=== PATIENT | male | born 1960 | race African-American/Black ===

== ENCOUNTER 2019-08-19 23:23 | Inpatient (IN) | payer OTHER ==
--- NOTE | 2019-08-19 23:36 | PDOC ---
Attending Attestation - Resident Resident Name: Roya Arellano - ED Attending Attestation I have performed the following: I have examined & evaluated the patient, The case was reviewed & discussed with the resident, I agree w/resident's findings & plan - HPI HPI: 08/19/19 23:45 had dinner with patient at 9:30PM; he then went to bedroom; found him slurring speech and ataxic; gait was completely off. Pt went to [facility] on Jul 24- Aug 03. Returned on the . He owns a liquor store; drinks only on weekends, a couple glasses of wine. Pt doesn't smoke and he doesn't use drugs He is not obese. He has a hx of HTN and thyroid disease. - Physicial Exam PE: 08/19/19 23:48 Agree with resident exam Afebrile HEENT normal; right eye cataract surg in past. Heart lungs normal Follows commands and moves all extremities. Pt is A+Ox3 Pt has normal reflexes Babinski Pronator drift Finger to nose is shaky bilat. - Medical Decision Making 08/20/19 00:10 Patient Name: ABHI PEACOCK THIS IS A PRELIMINARY REPORT FROM [facility] DATE OF SERVICE: 2019-08-19 23:34:46 IMAGES: 143 EXAM: CT HEAD WITHOUT IV CONTRAST TECHNIQUE: Axial images from the skull base to the vertex. Bone and soft tissue windows were reviewed. One or more of the following dose reduction techniques were used: automated exposure control, adjustment of the mA and/or kV according to patient size, use of iterative reconstructive technique. Contrast: None REASON FOR EXAM: Evaluate for TIA/stroke COMPARISON: None. FINDINGS: Small lacunar infarction of the left basal ganglia. Recommend brain MRI to further characterize it quickly worsened. Otherwise, the remaining brain parenchymal architecture appears normal, with preservation of the almodovar-white differentiation. There is no acute intracranial hemorrhage, mass effect or midline shift. No abnormal intra-axial or extra-axial fluid collection is seen. The periventricular white matter is unremarkable. The ventricles and basilar cisterns are maintained. The bones of the calvarium and imaged skull base demonstrate no acute abnormality. The imaged paranasal sinuses and mastoid air cells : Polypoid mucosal thickening versus retention cyst in the right maxillary antrum, incompletely evaluated. IMPRESSION: Small lacunar infarction of the left basal ganglia. Recommend brain MRI to further characterize it quickly worsened. Otherwise, the remaining brain parenchymal architecture appears normal, with preservation of the almodovar-white differentiation. 08/20/19 00:32 D/W Neuro lubrication supervisor Dr. Huffman, who agrees that as pt's ataxia and finger to nose exam is improving, and slurred speech improving, he has no other focal deficits, so we will not tPA at this time; risks outweigh the benefits. He recommends admission for stroke workup; assa and statins and keep head down for the next 24hrs, slight trendelenburg to allow for blood flow to the brain. Heart Score/ECG Review - ECG Intrepretation Rhythm: Regular Rhythm - Dawson Dawson: Normal - P and [place] Delta Wave(s) Present: No WPW: No - ST and T Early Repolarization: No Non Specific ST-T Wave changes: No Flattened T Waves: No Prolonged Q-T Interval: No - ECG Impressions Normal ECG: Yes Non-specific ST Elevation: No Ischemic Changes: No
[2019-08-19] MEDS: SODIUM CHLORIDE 1,000 ML IV SCH (23:45)
--- NOTE | 2019-08-19 23:52 | PDOC ---
History of Present Illness - General Stated Complaint: STROKE LIKE SYMPTOMS Time Seen by Provider: 08/19/19 23:35 - History of Present Illness Initial Comments: Yin Moran is a 59yo man with a PMH of HTN, thyroid disease who presents with acute onset of AMS, gait abnormality and voice abnormality. He presents with his , who states that he was last well at 21:35. She states that he had gone to bed, and he woke up with slurred speech, difficulty walking, and confusion. She says that he does not sound like himself and is not acting like himself. Mr Moran reports that he had "no idea what was going on" when he woke up overnight. Otherwise, he says that he thinks he is fine. He denies any drug or alcohol use, previous episodes of confusion, fever/chills, infectious symptoms, numbness/tingling, or weakness. NIH Stroke Scale - Last Known Well Date/Time & Onset Date Last Known Well: 08/20/19 Time Last Known Well: 21:35 - Initial Evaluation Level of consciousness: Alert Ask patient the month and their age: Answers both correctly Ask patient to open & close eyes; make fist and let go: Obeys both correctly Best gaze (horizontal eye movement): Normal Visual field testing: No visual field loss Facial paresis (Show teeth/raise eyebrows/close eyes tight): Normal symmetrical movement Motor Function: Left Arm: Normal Motor Function: Right Arm: Normal (extends arm 90 (or 45) degrees for 10 seconds without drift Motor Function: Left Leg: Normal (extends leg 30 degrees for 5 seconds without drift) Motor Function: Right Leg: Normal (extends leg 30 degrees for 5 seconds without drift) Limb Ataxia: Present in one limb Sensory(Use pinprick test arms,legs,trunk,face/side to side): Normal Best language (Describe picture, name items, read sentences): No Aphasia Dysarthria (read several words): Mild to moderate slurring of words Extinction and Inattention: No abnormality - Total Score NIH Stroke Scale Score: 2 Past History - Past Medical History Allergies/Adverse Reactions: Allergies Allergy/AdvReac Type Severity Reaction Status Date / Time No Known Allergies Allergy Verified 08/20/19 00:42 Review of Systems - Review of Systems Comments:: General: No fevers, no chills, no weight or appetite change, no malaise HEENT: No changes in vision, no changes in hearing, no congestion, no sore throat CV: No chest pain, no palpitations, no LE edema Pulm: No SOB, no cough, no wheezing GI: No nausea or vomiting, no change in bowel habits, no melena : No frequency, no urgency, no dysuria Musc: No back pain, no joint swelling, no recent injury Skin: No rash, no lesions, no erythema Endo: No excessive thirst, no heat/cold intolerance Heme: No unusual bruising or bleeding, no swollen glands Neuro: No syncope, no numbness/tingling, no focal weakness Vasc: No claudication Psych: No recent change in mood, no SI or HI *Physical Exam - Physical Exam Comments: General: Comfortable, appears stated age HEENT: Atraumatic, face symmetric, PERRL, EOMI, no nystagmus, MMM, normal neck ROM, no LAD Cards: RRR, no murmur appreciated Pulm: Comfortable on room air, clear to auscultation bilaterally Abd: Soft, nontender, nondistended Ext: Atraumatic. No LE edema. ROM intact. Strength 5/5 and equal bilaterally Vasc: Extremities WWP. Palpable radial and pedal pulses bilaterally Skin: Normal color, no rashes or lesions Neuro: A&Ox3 (name, month, place), CN grossly intact, slurred speech, motor/ sensory grossly intact and symmetric. +ataxia on RUE finger-nose testing. Gait unsteadiness. Difficulty following commands until repeated several times. Psych: Mood appropriate to situation ED Treatment Course - LABORATORY CBC & Chemistry Diagram: 08/20/19 00:00 08/20/19 00:00 - RADIOLOGY Radiology Studies Ordered: Category Date Time Status HEAD CT (STROKE) [CT] Stat CT Scan 08/19/19 23:35 Ordered Medical Decision Making - Medical Decision Making 08/19/19 23:51 Yin Moran is a 59yo man with a PMH of HTN, thyroid disease who presents with acute onset of AMS, gait abnormality and voice abnormality concerning for CVA or TIA. He was last seen well at 21:35 tonight. He denies any drug or alcohol use, previous episodes of confusion, fever/chills, infectious symptoms, numbness /tingling, or weakness. - Acute neurological deficits including slurred speech, ataxia. Stroke code called - CVA workup initiated - Pt taken to CT for non-contrast CT head. No acute abnormalities appreciated on initial review, read pending - Stroke scale 2 based on current symptoms 08/20/19 00:40 - Spoke to Dr Huffman regarding possible tPA. As symptoms do not appear to be focal, may not be due to acute CVA or TIA. Feels risks of tPA administration out weigh benefits in this instance. Recommending ASA, statin - CT head w/ small lacunar infarct of left basal ganglia but no acute intracranial bleed. MRI recommended - Labs pending. Plan to admit for additional workup when results completed Discussed with Dr Blanca Arellano PGY2 Discharge - Discharge Information Problems reviewed: Yes Clinical Impression/Diagnosis: Cerebrovascular accident (CVA) Qualifiers: CVA mechanism: unspecified Qualified Code(s): I63.9 - Cerebral infarction, unspecified - Admission Yes - Follow up/Referral - Patient Discharge Instructions - Post Discharge Activity
[2019-08-20 00:25] LABS: BASO % 1.2 % (0-2.0); HEMATOCRIT 45.5 % (35.4-49); HEMOGLOBIN 14.2 GM/dL (11.7-16.9); LYMPH % 48.8 % (8-40); MCH 24.6 pg (25.7-33.7); MCHC 31.3 g/dl (32.0-35.9); MEAN CELL VOLUME 78.8 fl (80-96); MEAN PLT VOLUME 7.5 fl (7.5-11.1); MONO % 11.8 % (3.8-10.2); NEUT % 29.2 % (42.8-82.8); PLATELET COUNT 178 K/MM3 (134-434); RBC 5.78 M/mm3 (4.00-5.60); RDW 15.2 % (11.9-15.9); WHITE BLOOD COUNT 7.4 K/mm3 (4.0-10.0)
[2019-08-20] MEDS ORDERED: ROSUVASTATIN CA 40 MG TABLET PO ONE (00:30)
[2019-08-20] MEDS ORDERED: ASPIRIN 81 MG CHEWABLE TABLETS PO ONE (00:30)
[2019-08-20] MEDS ORDERED: ATORVASTATIN CA 80 MG TABLET (FP) PO ONE (00:31)
[2019-08-20 00:38] LABS: INR 1.03 (0.83-1.09); PROTHROMBIN TIME (PATIENT) 12.2 SEC (9.7-13.0)
[2019-08-20 00:53] LABS: HDL CHOLESTEROL 47 mg/dL (40-60); TRIGLYCERIDES 192 mg/dL (0-150)
[2019-08-20 00:56] LABS: ALBUMIN 2.6 g/dl (3.4-5.0); BILIRUBIN,TOTAL 0.4 mg/dL (0.2-1); BLOOD UREA NITROGEN 9.7 mg/dL (7-18); CREATININE 0.8 mg/dL (0.55-1.3); TOT PROT 4.8 g/dl (6.4-8.2)
[2019-08-20 01:05] LABS: CALCIUM 6.6 mg/dL (8.5-10.1); POTASSIUM 2.7 mmol/L (3.5-5.1)
--- NOTE | 2019-08-20 01:56 | PN ---
Teaching Attending Note Name of Resident: Barb Tilley ATTENDING PHYSICIAN STATEMENT I saw and evaluated the patient. I reviewed the resident's note and discussed the case with the resident. I agree with the resident's findings and plan as documented. SUBJECTIVE: Patient is a 59 year old man with a PMH of HTN and Thyroid disease who presents with acute onset of AMS, gait abnormality and voice abnormality. He presents with his , who states that he was last well at 21:35. She states that he had gone to bed, and he woke up with slurred speech, difficulty walking, and confusion. She says that he does not sound like himself and is not acting like himself. Mr Luisa reports that he had "no idea what was going on" when he woke up overnight. Otherwise, he says that he thinks he is fine. He denies any drug or alcohol use, previous episodes of confusion, fever/chills, infectious symptoms, numbness/tingling, or weakness. OBJECTIVE: Alert Vital Signs Period Temp Pulse Resp BP Sys/Childers Pulse Ox Last 24 Hr 98.4 F 82-82 18-18 124-145/89-97 97-99 HEENT: No Jaundice, eye redness or discharge, PERRLA, EOMI. Normocephalic, atraumatic. External ears are normal and hearing is grossly intact. No nasal discharge. Neck: Supple, nontender. No palpable adenopathy or thyromegaly. No JVD Chest: Good effort. Clear to auscultation and percussion. Heart: Regular. No S3, rub or murmur Abdomen: Not distended, soft, nontender and no HSM. No rebound or guarding. Normal bowel sounds. Ext: Peripheral pulses intact. No leg edema. Skin: Warm and dry. No petechiae, rash or ecchymosis. Neuro: Alert. Oriented x3. Slurred speech; struggling finding words. CN 2-12 grossly intact. Sensation grossly intact in all four extremities and DTR are symmetric. Poor gait. Psych: Appropriate mood and affect. Good insight. Current Medications Generic Name Dose Route Start Last Admin Trade Name Freq PRN Reason Stop Dose Admin Sodium Chloride 1,000 mls @ 42 mls/hr 08/19/19 23:45 08/19/19 23:45 Normal Saline - IV 42 mls/hr ASDIR BRIAN Administration Potassium Chloride 10 meq in 100 mls @ 100 mls/hr 08/20/19 02:15 Potassium Chloride 10 Meq Premix Ivpb - IVPB 08/20/19 05:14 Q60M BRIAN Abnormal Lab Results 08/20/19 08/20/19 08/20/19 00:00 00:00 00:00 RBC 5.78 H MCV 78.8 L MCH 24.6 L MCHC 31.3 L Neutrophils % 29.2 L Lymphocytes % 48.8 H Monocytes % 11.8 H Eosinophils % 9.0 H Sodium 150 H Potassium 2.7 L* Chloride 117 H Calcium 6.6 L* AST 13 L Alkaline Phosphatase 22 L Total Protein 4.8 L Albumin 2.6 L Triglycerides 192 H Total LDL Cholesterol Ur Specific [place] 08/20/19 08/20/19 00:00 02:30 RBC MCV MCH MCHC Neutrophils % Lymphocytes % Monocytes % Eosinophils % Sodium Potassium Chloride Calcium AST Alkaline Phosphatase Total Protein Albumin Triglycerides Total LDL Cholesterol 136 H Ur Specific [place] 1.005 L ASSESSMENT AND PLAN: 1. CVA - Initial NIHSS score in the ER was 2. Noncontrast CT head showed small lacunar infarct of left basal ganglia but no acute intracranial bleed. ER staff spoke to the neurologist who recommended Aspirin and statin but not tPA. MRI recommended. Will do speech and swallow assessment, get ECHO, TSH, monitor on telemetry, carotid doppler and treat with Lipitor 80 mg po qd. Consult PT. EKG showed sinus bradycardia, LAE and nos significant ST-T wave changes. CMP showing hypernatremia, hypokalemia and hypocalcemia and very low total protein may be erroneous - he was started on IV KCL and IV NS in the ER, but will repeat CMP stat and also get Mg+ level before further intervention. Hold IV NS. Get urine toxicology and CXR. 2. DVT prophylaxis - Lovenox 40 mg SQ q 24 hours. 3. Advance directives - Full code
[2019-08-20] MEDS ORDERED: POTASSIUM CHLORIDE TABS 20 MEQ TABLET.ER (FP) PO ONE ×2 (02:06→02:17)
[2019-08-20] MEDS ORDERED: KCL 10 MEQ IVPB 10 MEQ/100 ML INFUS.BAG IVPB ONE (02:17)
[2019-08-20 02:45] LABS: PH,URINE 5.5 (5.0-8.0); URINE APPEARANCE CLEAR; URINE BILIRUBIN NEGATIVE (NEGATIVE); URINE COLOR YELLOW; URINE GLUCOSE (UA) NEGATIVE (NEGATIVE); URINE KETONE NEGATIVE (NEGATIVE); URINE LEUK ESTERASE NEGATIVE (NEGATIVE); URINE NITRITE NEGATIVE (NEGATIVE); URINE PROTEIN NEGATIVE (NEGATIVE); URINE UROBILINOGEN 0.2 mg/dL (0.2-1.0)
[2019-08-20] MEDS: KCL 10 MEQ IVPB 10 MEQ/100 ML INFUS.BAG IVPB SCH ×4 (03:00→06:50)
[2019-08-20 04:24] VITALS: BMI 26.0
--- NOTE | 2019-08-20 04:52 | HP ---
CHIEF COMPLAINT: slurred speech, difficulty speaking, ataxia and altered mental status PCP: HISTORY OF PRESENT ILLNESS: 59 y/o M, pmh of htn and thyroid disease(not known), presented w/ slurred speech , difficulty speaking, ataxia and altered mental status of a few hours duration. He was brought in by his , who states that he was doing well earlier on in the evening. As per he was in bed when he woke up with his symptoms. She reports he was altered and confused upon waking up. As per patient , he does not remember the incidence and can only recall waking up in the ED. Pt denies any previous hx of similar event or symptoms. Pt has never had a stress test of the heart or cva work up. Pt has not seen a doctor or went to the hospital for several years. Pt denies drug or alcohol use, previous episodes of confusion, fever/chills, infectious symptoms, numbness/tingling, or weakness, chest pain, sob, weakness. ER course was notable for: (1) CT head- pending (2) Discussed with neuro- recom no tpa (3) ASA and statin started Recent Travel: denies PAST MEDICAL HISTORY: htn, thyroid disease PAST SURGICAL HISTORY: laproscopic surgery for liver- patient does not recall the name of the procedure Social History: Smoking: denies Alcohol: denies Drugs: denies Allergies No Known Allergies Allergy (Verified 08/20/19 00:42) HOME MEDICATIONS: Current Medications Aspirin (Asa -) 81 mg PO DAILY [facility] Atorvastatin Calcium (Lipitor -) 80 mg PO HS [facility] Sodium Chloride (Normal Saline -) 1,000 mls @ 42 mls/hr IV ASDIR [facility] Last Admin: 08/19/19 23:45 Dose: 42 mls/hr Potassium Chloride (Potassium Chloride 10 Meq Premix Ivpb -) 10 meq in 100 mls @ 100 mls/hr IVPB Q60M [facility] Stop: 08/20/19 05:14 Last Admin: 08/20/19 03:52 Dose: 100 mls/hr REVIEW OF SYSTEMS CONSTITUTIONAL: Absent: fever, chills, diaphoresis, generalized weakness, HEENT: Absent: nasal congestion, throat pain, throat swelling, difficulty swallowing, mouth swelling, visual changes CARDIOVASCULAR: Absent: chest pain, syncope, palpitations, irregular heart rate, lightheadedness , RESPIRATORY: Absent: cough, shortness of breath, dyspnea with exertion, orthopnea, wheezing, GASTROINTESTINAL: Absent: abdominal pain, abdominal distension, nausea, vomiting, diarrhea, MUSCULOSKELETAL: Absent: myalgia, arthralgia, joint swelling, HEMATOLOGIC/IMMUNOLOGIC: Absent: easy bleeding, ENDOCRINE: Absent: unexplained weight gain, unexplained weight loss, NEUROLOGIC: Absent: headache, focal weakness or paresthesias, dizziness, unsteady gait, seizure, mental status changes, PHYSICAL EXAMINATION Vital Signs - 24 hr Last Vital Signs Temp Pulse Resp BP Pulse Ox 97.7 F 78 18 123/83 96 08/20/19 03:30 08/20/19 03:30 08/20/19 03:30 08/20/19 03:30 08/20/19 03:30 GENERAL: Awake, alert, and fully oriented, in no acute distress. EYES: Pupils equal, round and reactive to light, extraocular movements abnormal - nystagmus can be noted, especially on horizontal gaze EARS, NOSE, THROAT: Moist mucous membranes. NECK: Normal range of motion, supple without lymphadenopathy, LUNGS: Breath sounds equal, clear to auscultation bilaterally. No wheezes, and no crackles. HEART: Regular rate and rhythm, normal S1 and S2 without murmur, rub or gallop. ABDOMEN: Soft, nontender, not distended, normoactive bowel sounds, no guarding, no rebound UPPER EXTREMITIES: 2+ pulses, warm, well-perfused. No peripheral edema. LOWER EXTREMITIES: 2+ pulses, warm, well-perfused. No peripheral edema. NEUROLOGICAL: Speech mildy delayed, dysarthria mildly present, facial asymmetry can be noted Strength 5/5 left and 4/5 right b/l LE and UE. Sensation intact b/l UE and LE. EOM movement are abnormal-nystagmus. Romberg sign positive PSYCHIATRIC: Cooperative. Good eye contact. Appropriate mood and affect. SKIN: Warm, dry, normal Laboratory Results - last 24 hr 08/20/19 08/20/19 08/20/19 00:00 00:00 00:00 WBC 7.4 RBC 5.78 H Hgb 14.2 Hct 45.5 MCV 78.8 L MCH 24.6 L MCHC 31.3 L RDW 15.2 Plt Count 178 MPV 7.5 Absolute Neuts (auto) 2.2 Neutrophils % 29.2 L Lymphocytes % 48.8 H Monocytes % 11.8 H Eosinophils % 9.0 H Basophils % 1.2 Nucleated RBC % 0 PT with INR INR PTT (Actin FS) Sodium 150 H Potassium 2.7 L* Chloride 117 H Carbon Dioxide 24 Anion Gap 9 BUN 9.7 Creatinine 0.8 Est GFR (CKD-EPI)AfAm 111.74 Est GFR (CKD-EPI)NonAf 96.41 Random Glucose 79 Calcium 6.6 L* Total Bilirubin 0.4 AST 13 L ALT 24 Alkaline Phosphatase 22 L Creatine Kinase 142 Troponin I < 0.02 Total Protein 4.8 L Albumin 2.6 L Triglycerides Cholesterol 158 Total LDL Cholesterol HDL Cholesterol Urine Color Urine Appearance Urine pH Ur Specific [place] Urine Protein Urine Glucose (UA) Urine Ketones Urine Blood Urine Nitrite Urine Bilirubin Urine Urobilinogen Ur Leukocyte Esterase Blood Type Antibody Screen ASSESSMENT/PLAN: 59 y/o M, pmh of htn and thyroid disease(not known), presented w/ slurred speech , difficulty speaking, ataxia and altered mental status of a few hours duration is being treated for symptoms likely 2/2 to cva #Dysarthria+Ataxia 2/[address] head-pending read Rhomberg positive MRI head w/out contrast ordered Continue ASA and statins Doppler of carotids ordered Speech and swallow consulted PT consulted As per Dr. Hartley, neuro, there is no benefit in tPA at this point- recom is to continue ASA and statins #HTN verify BP meds with daughter tomorrow when she arrives continue home meds once verified monitor BP over night currently BP well controlled- 124/89 #Hypokalemia replete potassium r/p CMP ordered stat #Hypernatremia monitor lytes #Triglyceridemia cont statins #DVT ppx FEN regular diet Dispo: f/u Head CT read, f/u head MRI, continue monitoring bp and lytes Visit type - Emergency Visit Emergency Visit: Yes ED Registration Date: 08/20/19 Care time: The patient presented to the Emergency Department on the above date and was hospitalized for further evaluation of their emergent condition. - New Patient This patient is new to me today: Yes Date on this admission: 08/23/19 - Critical Care Critical Care patient: No ATTENDING PHYSICIAN STATEMENT I saw and evaluated the patient. I reviewed the resident's note and discussed the case with the resident. I agree with the resident's findings and plan as documented. SUBJECTIVE: OBJECTIVE: ASSESSMENT AND PLAN:
[2019-08-20 07:53] LABS: BASO % 0.5 % (0-2.0); EOS % 8.8 % (0-4.5); HEMATOCRIT 43.2 % (35.4-49); HEMOGLOBIN 13.7 GM/dL (11.7-16.9); MCH 25.2 pg (25.7-33.7); MCHC 31.8 g/dl (32.0-35.9); MEAN CELL VOLUME 79.1 fl (80-96); MONO % 11.8 % (3.8-10.2); NEUT % 30.9 % (42.8-82.8); PLATELET COUNT 173 K/MM3 (134-434); RBC 5.46 M/mm3 (4.00-5.60); RDW 15.2 % (11.9-15.9); WHITE BLOOD COUNT 5.9 K/mm3 (4.0-10.0)
[2019-08-20 08:16] LABS: ALBUMIN 3.2 g/dl (3.4-5.0); BILIRUBIN,TOTAL 0.5 mg/dL (0.2-1); BLOOD UREA NITROGEN 10.2 mg/dL (7-18); CALCIUM 8.5 mg/dL (8.5-10.1); POTASSIUM 4.2 mmol/L (3.5-5.1)
--- NOTE | 2019-08-20 10:00 | HOSP ---
Subjective - Review of Symptoms Events since last encounter: Patient is comfortable with no acute distress, back to his baseline. Vital Signs Temperature 97.5 F L 08/20/19 06:00 Pulse Rate 84 08/20/19 06:00 Respiratory Rate 17 08/20/19 06:00 Blood Pressure 133/87 08/20/19 06:00 O2 Sat by Pulse Oximetry (%) 96 08/20/19 06:00 GENERAL: Awake, alert, and fully oriented, in no acute distress. EYES: Pupils equal, round and reactive to light, EOMI, no nyastagmus noted EARS, NOSE, THROAT: Moist mucous membranes. NECK: Normal range of motion, supple without lymphadenopathy, LUNGS: Breath sounds equal, clear to auscultation bilaterally. No wheezes, and no crackles. HEART: Regular rate and rhythm, normal S1 and S2 without murmur, rub or gallop. ABDOMEN: Soft, nontender, not distended, normoactive bowel sounds, no guarding, no rebound EXTREMITIES: 2+ pulses, warm, well-perfused. No peripheral edema. NEUROLOGICAL: CN 2-12 grossly intact , no facial asymmetry noted PSYCHIATRIC: Cooperative. Good eye contact. Appropriate mood and affect. SKIN: Warm, dry, normal CBCD WBC 5.9 K/mm3 (4.0-10.0) 08/20/19 06:15 RBC 5.46 M/mm3 (4.00-5.60) 08/20/19 06:15 Hgb 13.7 GM/dL (11.7-16.9) 08/20/19 06:15 Hct 43.2 % (35.4-49) 08/20/19 06:15 MCV 79.1 fl (80-96) L 08/20/19 06:15 MCHC 31.8 g/dl (32.0-35.9) L 08/20/19 06:15 RDW 15.2 % (11.9-15.9) 08/20/19 06:15 Plt Count 173 K/MM3 (134-434) 08/20/19 06:15 MPV 8.0 fl (7.5-11.1) 08/20/19 06:15 CMP Sodium 145 mmol/L (136-145) 08/20/19 05:15 Potassium 4.2 mmol/L (3.5-5.1) 08/20/19 05:15 Chloride 107 mmol/L (98-107) 08/20/19 05:15 Carbon Dioxide 27 mmol/L (21-32) 08/20/19 05:15 Anion Gap 10 MMOL/L (8-16) 08/20/19 05:15 BUN 10.2 mg/dL (7-18) 08/20/19 05:15 Creatinine 1.0 mg/dL (0.55-1.3) 08/20/19 05:15 Random Glucose 98 mg/dL (74-106) 08/20/19 05:15 Calcium 8.5 mg/dL (8.5-10.1) 08/20/19 05:15 Total Bilirubin 0.5 mg/dL (0.2-1) 08/20/19 05:15 AST 21 U/L (15-37) 08/20/19 05:15 ALT 29 U/L (13-61) 08/20/19 05:15 Alkaline Phosphatase 30 U/L (45-117) L 08/20/19 05:15 Total Protein 6.0 g/dl (6.4-8.2) L 08/20/19 05:15 Albumin 3.2 g/dl (3.4-5.0) L 08/20/19 05:15 CARDIAC ENZYMES Creatine Kinase 142 U/L (26-308) 08/20/19 00:00 Troponin I < 0.02 ng/ml (0.00-0.05) 08/20/19 00:00 Current Medications Generic Name Dose Route Start Last Admin Trade Name Freq PRN Reason Stop Dose Admin Aspirin 81 mg 08/20/19 10:00 Asa - PO DAILY BRIAN Atorvastatin Calcium 80 mg 08/20/19 22:00 Lipitor - PO HS BRIAN Sodium Chloride 1,000 mls @ 42 mls/hr 08/19/19 23:45 08/19/19 23:45 Normal Saline - IV 42 mls/hr ASDIR BRIAN Administration Laboratory Tests 08/20/19 08/20/19 08/20/19 00:00 00:00 00:00 Triglycerides 192 H Cholesterol 158 Total LDL Cholesterol 136 H HDL Cholesterol 47 Assessment and plan; Patient is a 59yo male with pmhx of htn and thyroid disease presented w/ slurred speech, difficulty speaking, ataxia and altered mental status of a few hours. # Dysarthria+Ataxia; back to his normal today r/o CVA; CT headz: Lacunar infarcts left basal ganglia of uncertain chronicity. MRI of the brain: no evidence of acute infarction, extensive ischemic changes white matter of both cerebral hemispheres sequelae most probably due to HTN or small vessel atherosclerosis. Also old the small left cerebellar infarct. #HTN: continue home meds #Hypokalemia ;replete potassium #Triglyceridemia: cont statins #DVT ppx:P hep. Physical Examination Vital Signs: Vital Signs Temperature 97.5 F L 08/20/19 06:00 Pulse Rate 84 08/20/19 06:00 Respiratory Rate 17 08/20/19 06:00 Blood Pressure 133/87 08/20/19 06:00 O2 Sat by Pulse Oximetry (%) 96 08/20/19 06:00 Labs: CBC, BMP 08/20/19 06:15 08/20/19 05:15
[2019-08-20] MEDS: ASPIRIN 81 MG CHEWABLE TABLETS PO SCH (10:07)
--- NOTE | 2019-08-20 11:25 | CONSULT ---
Consult - text type - Consultation Consultation Note: Neurology CHIEF COMPLAINT: slurred speech, difficulty speaking, ataxia and altered mental status PCP: HISTORY OF PRESENT ILLNESS: 59 y/o M, pmh of htn and thyroid disease(not known), presented w/ slurred speech , difficulty speaking, ataxia and altered mental status of a few hours duration. He was brought in by his , who states that he was doing well earlier on in the evening. As per he was in bed when he woke up with his symptoms. She reports he was altered and confused upon waking up. As per patient , he does not remember the incidence and can only recall waking up in the ED. Pt denied any previous hx of similar event or symptoms. Pt has never had a stress test of the heart or cva work up. Pt has not seen a doctor or went to the hospital for several years. Pt denied drug or alcohol use, previous episodes of confusion, fever/chills, infectious symptoms, numbness/tingling, or weakness, chest pain, sob, weakness. I was contacted by ER and patients symptoms were improving and with low NIHSS deferred on TPA. Head CT completed, lacunar infarcts let basal ganglia of uncertain chronicity and no definite acute intracranial pathology. Carotid colorflow doppler completed, no acute pathology noted. Patient LDL level 136, started on 81mg Aspirin and 80mg statin. Was not on ASA at home. MRI brain ordered and patient being sent down during my visit. Patient at or near baseline this AM without deficts and not confused or with difficulty speaking. at bedside as well. Recent Travel: denies PAST MEDICAL HISTORY: htn, thyroid disease PAST SURGICAL HISTORY: laproscopic surgery for liver- patient does not recall the name of the procedure Social History: Smoking: denies Alcohol: denies Drugs: denies FAMILY HISTORY No Known History Allergies No Known Allergies Allergy (Verified 08/20/19 00:42) Ambulatory Medications Unknown Active Medications Aspirin (Asa -) 81 mg PO DAILY [facility] Last Admin: 08/20/19 10:07 Dose: 81 mg Atorvastatin Calcium (Lipitor -) 80 mg PO HS [facility] Sodium Chloride (Normal Saline -) 1,000 mls @ 42 mls/hr IV ASDIR [facility] Last Admin: 08/19/19 23:45 Dose: 42 mls/hr REVIEW OF SYSTEMS CONSTITUTIONAL: Absent: fever, chills, diaphoresis, generalized weakness, HEENT: Absent: nasal congestion, throat pain, throat swelling, difficulty swallowing, mouth swelling, visual changes CARDIOVASCULAR: Absent: chest pain, syncope, palpitations, irregular heart rate, lightheadedness , RESPIRATORY: Absent: cough, shortness of breath, dyspnea with exertion, orthopnea, wheezing, GASTROINTESTINAL: Absent: abdominal pain, abdominal distension, nausea, vomiting, diarrhea, MUSCULOSKELETAL: Absent: myalgia, arthralgia, joint swelling, HEMATOLOGIC/IMMUNOLOGIC: Absent: easy bleeding, ENDOCRINE: Absent: unexplained weight gain, unexplained weight loss, NEUROLOGIC: Absent: headache, focal weakness or paresthesias, dizziness, unsteady gait, seizure, mental status changes, PHYSICAL EXAMINATION Vital Signs Period Temp Pulse Resp BP Sys/Childers Pulse Ox Last 24 Hr 97.5 F-98.4 F 78-84 17-18 123-145/83-97 96-99 GENERAL: Awake, alert, and fully oriented, in no acute distress. EYES: Pupils equal, round and reactive to light, extraocular movements abnormal - nystagmus can be noted, especially on horizontal gaze EARS, NOSE, THROAT: Moist mucous membranes. NECK: Normal range of motion, supple without lymphadenopathy, LUNGS: Breath sounds equal, clear to auscultation bilaterally. No wheezes, and no crackles. HEART: Regular rate and rhythm, normal S1 and S2 without murmur, rub or gallop. ABDOMEN: Soft, nontender, not distended, normoactive bowel sounds, no guarding, no rebound UPPER EXTREMITIES: 2+ pulses, warm, well-perfused. No peripheral edema. LOWER EXTREMITIES: 2+ pulses, warm, well-perfused. No peripheral edema. NEUROLOGICAL: Speech mildy delayed, dysarthria mildly present, facial asymmetry can be noted Strength 5/5 left and 4/5 right b/l LE and UE. Sensation intact b/l UE and LE. EOM movement are abnormal-nystagmus. Romberg sign positive PSYCHIATRIC: Cooperative. Good eye contact. Appropriate mood and affect. SKIN: Warm, dry, normal CBCD WBC 5.9 K/mm3 (4.0-10.0) 08/20/19 06:15 RBC 5.46 M/mm3 (4.00-5.60) 08/20/19 06:15 Hgb 13.7 GM/dL (11.7-16.9) 08/20/19 06:15 Hct 43.2 % (35.4-49) 08/20/19 06:15 MCV 79.1 fl (80-96) L 08/20/19 06:15 MCHC 31.8 g/dl (32.0-35.9) L 08/20/19 06:15 RDW 15.2 % (11.9-15.9) 08/20/19 06:15 Plt Count 173 K/MM3 (134-434) 08/20/19 06:15 MPV 8.0 fl (7.5-11.1) 08/20/19 06:15 CMP Sodium 145 mmol/L (136-145) 08/20/19 05:15 Potassium 4.2 mmol/L (3.5-5.1) 08/20/19 05:15 Chloride 107 mmol/L (98-107) 08/20/19 05:15 Carbon Dioxide 27 mmol/L (21-32) 08/20/19 05:15 Anion Gap 10 MMOL/L (8-16) 08/20/19 05:15 BUN 10.2 mg/dL (7-18) 08/20/19 05:15 Creatinine 1.0 mg/dL (0.55-1.3) 08/20/19 05:15 Random Glucose 98 mg/dL (74-106) 08/20/19 05:15 Calcium 8.5 mg/dL (8.5-10.1) 08/20/19 05:15 Total Bilirubin 0.5 mg/dL (0.2-1) 08/20/19 05:15 AST 21 U/L (15-37) 08/20/19 05:15 ALT 29 U/L (13-61) 08/20/19 05:15 Alkaline Phosphatase 30 U/L (45-117) L 08/20/19 05:15 Total Protein 6.0 g/dl (6.4-8.2) L 08/20/19 05:15 Albumin 3.2 g/dl (3.4-5.0) L 08/20/19 05:15 CARDIAC ENZYMES Creatine Kinase 142 U/L (26-308) 08/20/19 00:00 Troponin I < 0.02 ng/ml (0.00-0.05) 08/20/19 00:00 ASSESSMENT/PLAN: 59 y/o M, pmh of htn and thyroid disease(not known), presented w/ slurred speech , difficulty speaking, ataxia and altered mental status of a few hours duration. He was brought in by his , who states that he was doing well earlier on in the evening. As per he was in bed when he woke up with his symptoms. She reports he was altered and confused upon waking up. As per patient , he does not remember the incidence and can only recall waking up in the ED. Pt denied any previous hx of similar event or symptoms. Pt has never had a stress test of the heart or cva work up. Pt has not seen a doctor or went to the hospital for several years. Pt denied drug or alcohol use, previous episodes of confusion, fever/chills, infectious symptoms, numbness/tingling, or weakness, chest pain, sob, weakness. I was contacted by ER and patients symptoms were improving and with low NIHSS deferred on TPA. Head CT completed, lacunar infarcts let basal ganglia of uncertain chronicity and no definite acute intracranial pathology. Carotid colorflow doppler completed, no acute pathology noted. Patient LDL level 136, started on 81mg Aspirin and 80mg statin. Was not on ASA at home. MRI brain ordered and patient being sent down during my visit. Patient at or near baseline this AM without deficts and not confused or with difficulty speaking. at bedside as well. Conitnue ASA, statin, follow up MRI, monitor bp, maintain < 160/90. Patient eager to go home, ambulation as tolerated. MOnitor telemetry.
--- NOTE | 2019-08-20 14:45 | EKG ---
Test Reason : Blood Pressure : / mmHG Vent. Rate : 091 BPM Atrial Rate : 091 BPM P-R Int : 148 ms QRS Dur : 086 ms QT Int : 378 ms P-R-T Axes : 049 032 050 degrees QTc Int : 464 ms NORMAL SINUS RHYTHM NORMAL ECG NO PREVIOUS ECGS AVAILABLE Confirmed by JIMMIE VIERA, BHARTI ([id number]) on 08/20/2019 2:45:19 PM Referred By: Confirmed By:BHARTI SAMUEL MD
[2019-08-20] MEDS ORDERED: ATORVASTATIN CA 80 MG TABLET (FP) PO SCH (22:00)
[2019-08-21 06:39] VITALS: TEMP 97.4
[2019-08-21] MEDS: SODIUM CHLORIDE 1,000 ML IV SCH (07:28)
[2019-08-21 08:09] VITALS: BP 149/88; PULSE 109
[2019-08-21] MEDS: ASPIRIN 81 MG CHEWABLE TABLETS PO SCH (09:27)
--- NOTE | 2019-08-21 12:35 | DS ---
Physical Exam: SUBJECTIVE: Patient seen and examined in the morning. No acute events overnight. Patient denies any symptoms of chest pain, shortness of breath, abdominal pain, numbness, fever, chills. OBJECTIVE: Vital Signs Period Temp Pulse Resp BP Sys/Childers Pulse Ox Last 24 Hr 97.4 F-98 F 73-109 17-18 125-153/79-96 97-97 PHYSICAL EXAM GENERAL: The patient is awake, alert, and fully oriented, in no acute distress. HEAD: Normal with no signs of trauma. EYES: PERRL, extraocular movements intact, sclera anicteric, conjunctiva clear. ENT: Ears normal, nares patent, oropharynx clear without exudates, moist mucous membranes. NECK: Trachea midline, full range of motion LUNGS: Breath sounds equal, clear to auscultation bilaterally, no wheezes, no crackles, no accessory muscle use. HEART: Regular rate and rhythm, S1, S2 without murmur, rub or gallop. ABDOMEN: Soft, nontender, nondistended, normoactive bowel sounds EXTREMITIES: 2+ pulses, warm, well-perfused, no edema. NEUROLOGICAL: Cranial nerves II through XII grossly intact. Normal speech, Normal Gait. PSYCH: Normal mood, normal affect. LABS CBC, BMP 08/20/19 06:15 08/20/19 05:15 HOSPITAL COURSE: Date of Admission:08/20/19 Date of Discharge: 08/21/19 59 M with PMH of HTN, Hypothyroidism who presented to the hospital on 08/20 with slurred speech, difficult speaking, ataxia, and altered mental status. Patient had CT scan of the head done which did not show any bleeds, or acute intracranial pathology. Neurology was consulted and they felt that TPA was not needed due to low NIHSS score. Patient was given atorvastatin 80 mg PO HS. Brain MRI showed no evidence of infarction. Patient was discharged on new dose of lisinopril (10 mg PO daily), atorvastatin 40 mg PO HS, and Aspirin 81 mg PO. Imaging done: CT Head: Lacunar infarcts left basal gangalia of uncertain chronicity. No evidence of intracranial pathology Brain MRI: No evidence of infarction. Extensive ischemic changes in white matter of both hemispheres most probably due to HTN or small vessel atherosclerosis. 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 Doppler: Normal no significant stenosis Minutes to complete discharge: 35 Discharge Summary Problems reviewed: Yes Reason For Visit: CEREBROVASCULAR ACCIDENT (CVA) Condition: Good - Instructions Diet, Activity, Other Instructions: You were admitted to the hospital because you were found to have difficulty speaking and talking. MRI of the brain showed that you some ischemic changes of your brain. While you were here we scanned your brain and did not see any signs of a stroke. While you were here we changed a few of your medications. We have started you on : Aspirin 81 mg by mouth once a day Lipitor 40 mg by mouth once a day Lisinopril 10mg by mouth daily , check your blood pressure in the morning and in the evening and document the reading and show it to your doctor. Please STOP taking lisinopril/hydrochlorothiazide. we prescribed you Lisinopril 10mg without HCTZ. Please follow up with your primary care doctor and check your blood pressure. Have your blood pressure under control, very important. So that you can avoid further symptoms. DIET should have low fat/no trans fat diet. low sodium diet. Follow with primary care and neurology as an outpatient. Please take all medications as directed and continue your other home medications. Follow up with Dr. Perez within 1 week. Return to the emergency department if you have new difficulty walking, talking, numbness, chest pain, shortness of breath, or worsening of your symptoms. Referrals: Luis Huffman MD [Staff Physician] - 2 Weeks Lakesha Perez MD [Primary Care Provider] - 1 Week Disposition: HOME - Home Medications Comprehensive Discharge Medication List: Ambulatory Orders Aspirin [Ecotrin] 81 mg PO DAILY #30 tablet. 08/21/19 Atorvastatin Ca [Lipitor] 40 mg PO HS #30 tablet 08/21/19 Levothyroxine [Synthroid -] 25 mcg PO DAILY 08/21/19 Lisinopril [Prinivil] 10 mg PO DAILY #30 tablet 08/21/19 This patient is new to me today: Yes Date on this admission: 08/21/19 Emergency Visit: Yes ED Registration Date: 08/20/19 Care time: The patient presented to the Emergency Department on the above date and was hospitalized for further evaluation of their emergent condition. Critical Care patient: No - Discharge Referral Referred to [facility] Med P.C.: No ATTENDING PHYSICIAN STATEMENT I saw and evaluated the patient. I reviewed the resident's note and discussed the case with the resident. I agree with the resident's findings and plan as documented. SUBJECTIVE: OBJECTIVE: ASSESSMENT AND PLAN:
--- NOTE | 2019-08-21 12:47 | PN ---
Progress Note (short form) - Note Progress Note: Neurology CHIEF COMPLAINT: slurred speech, difficulty speaking, ataxia and altered mental status HISTORY OF PRESENT ILLNESS: 59 y/o M, pmh of htn and thyroid disease(not known), presented w/ slurred speech , difficulty speaking, ataxia and altered mental status of a few hours duration. He was brought in by his , who states that he was doing well earlier on in the evening. As per he was in bed when he woke up with his symptoms. She reports he was altered and confused upon waking up. As per patient , he does not remember the incidence and can only recall waking up in the ED. Pt denied any previous hx of similar event or symptoms. Pt has never had a stress test of the heart or cva work up. Pt has not seen a doctor or went to the hospital for several years. Pt denied drug or alcohol use, previous episodes of confusion, fever/chills, infectious symptoms, numbness/tingling, or weakness, chest pain, sob, weakness. I was contacted by ER and patients symptoms were improving and with low NIHSS deferred on TPA. Head CT completed, lacunar infarcts let basal ganglia of uncertain chronicity and no definite acute intracranial pathology. Carotid colorflow doppler completed, no acute pathology noted. Patient LDL level 136, started on 81mg Aspirin and 80mg statin. Was not on ASA at home. MRI brain compelted and without acute changes. SHould be on ASA due to prior infarct noted but remains asympomatic and without deficits. Active Medications Aspirin (Asa -) 81 mg PO DAILY [facility] Last Admin: 08/21/19 09:27 Dose: 81 mg Atorvastatin Calcium (Lipitor -) 80 mg PO HS [facility] Last Admin: 08/20/19 21:09 Dose: 80 mg Sodium Chloride (Normal Saline -) 1,000 mls @ 42 mls/hr IV ASDIR [facility] Last Admin: 08/21/19 07:28 Dose: Not Given PHYSICAL EXAMINATION Vital Signs Period Temp Pulse Resp BP Sys/Childers Pulse Ox Last 24 Hr 97.4 F-98 F 73-109 17-18 125-153/79-96 97-97 GENERAL: Awake, alert, and fully oriented, in no acute distress. EYES: Pupils equal, round and reactive to light, extraocular movements abnormal - nystagmus can be noted, especially on horizontal gaze EARS, NOSE, THROAT: Moist mucous membranes. NECK: Normal range of motion, supple without lymphadenopathy, LUNGS: Breath sounds equal, clear to auscultation bilaterally. No wheezes, and no crackles. HEART: Regular rate and rhythm, normal S1 and S2 without murmur, rub or gallop. ABDOMEN: Soft, nontender, not distended, normoactive bowel sounds, no guarding, no rebound UPPER EXTREMITIES: 2+ pulses, warm, well-perfused. No peripheral edema. LOWER EXTREMITIES: 2+ pulses, warm, well-perfused. No peripheral edema. NEUROLOGICAL: Speech mildy delayed, dysarthria mildly present, facial asymmetry can be noted Strength 5/5 left and 4/5 right b/l LE and UE. Sensation intact b/l UE and LE. EOM movement are abnormal-nystagmus. Romberg sign positive PSYCHIATRIC: Cooperative. Good eye contact. Appropriate mood and affect. SKIN: Warm, dry, normal CBCD WBC 5.9 K/mm3 (4.0-10.0) 08/20/19 06:15 RBC 5.46 M/mm3 (4.00-5.60) 08/20/19 06:15 Hgb 13.7 GM/dL (11.7-16.9) 08/20/19 06:15 Hct 43.2 % (35.4-49) 08/20/19 06:15 MCV 79.1 fl (80-96) L 08/20/19 06:15 MCHC 31.8 g/dl (32.0-35.9) L 08/20/19 06:15 RDW 15.2 % (11.9-15.9) 08/20/19 06:15 Plt Count 173 K/MM3 (134-434) 08/20/19 06:15 MPV 8.0 fl (7.5-11.1) 08/20/19 06:15 CMP Sodium 145 mmol/L (136-145) 08/20/19 05:15 Potassium 4.2 mmol/L (3.5-5.1) 08/20/19 05:15 Chloride 107 mmol/L (98-107) 08/20/19 05:15 Carbon Dioxide 27 mmol/L (21-32) 08/20/19 05:15 Anion Gap 10 MMOL/L (8-16) 08/20/19 05:15 BUN 10.2 mg/dL (7-18) 08/20/19 05:15 Creatinine 1.0 mg/dL (0.55-1.3) 08/20/19 05:15 Random Glucose 98 mg/dL (74-106) 08/20/19 05:15 Calcium 8.5 mg/dL (8.5-10.1) 08/20/19 05:15 Total Bilirubin 0.5 mg/dL (0.2-1) 08/20/19 05:15 AST 21 U/L (15-37) 08/20/19 05:15 ALT 29 U/L (13-61) 08/20/19 05:15 Alkaline Phosphatase 30 U/L (45-117) L 08/20/19 05:15 Total Protein 6.0 g/dl (6.4-8.2) L 08/20/19 05:15 Albumin 3.2 g/dl (3.4-5.0) L 08/20/19 05:15 CARDIAC ENZYMES Creatine Kinase 142 U/L (26-308) 08/20/19 00:00 Troponin I < 0.02 ng/ml (0.00-0.05) 08/20/19 00:00 ASSESSMENT/PLAN: 59 y/o M, pmh of htn and thyroid disease(not known), presented w/ slurred speech , difficulty speaking, ataxia and altered mental status of a few hours duration. He was brought in by his , who states that he was doing well earlier on in the evening. As per he was in bed when he woke up with his symptoms. She reports he was altered and confused upon waking up. As per patient , he does not remember the incidence and can only recall waking up in the ED. Pt denied any previous hx of similar event or symptoms. Pt has never had a stress test of the heart or cva work up. Pt has not seen a doctor or went to the hospital for several years. Pt denied drug or alcohol use, previous episodes of confusion, fever/chills, infectious symptoms, numbness/tingling, or weakness, chest pain, sob, weakness. I was contacted by ER and patients symptoms were improving and with low NIHSS deferred on TPA. Head CT completed, lacunar infarcts let basal ganglia of uncertain chronicity and no definite acute intracranial pathology. Carotid colorflow doppler completed, no acute pathology noted. Patient LDL level 136, started on 81mg Aspirin and 80mg statin. Was not on ASA at home. MRI brain compelted and without acute changes. SHould be on ASA due to prior infarct noted but remains asympomatic and without deficits. Bp maintain < 140/80 as outpatient. Neurologically stable for discharge
[2019-08-21] MEDS ORDERED: LISINOPRIL 10 MG TABLET (FP) PO STA (14:07)
--- NOTE | 2019-08-21 16:00 | PN ---
Teaching Attending Note Name of Resident: Sherif Huber ATTENDING PHYSICIAN STATEMENT I saw and evaluated the patient. I reviewed the resident's note and discussed the case with the resident. I agree with the resident's findings and plan as documented. SUBJECTIve OBJECTIVE: Vital Signs Temperature 97.4 F L 08/21/19 08:04 Pulse Rate 109 H 08/21/19 08:04 Respiratory Rate 18 08/21/19 08:09 Blood Pressure 149/88 08/21/19 08:04 O2 Sat by Pulse Oximetry (%) 97 08/21/19 08:09 Vital Signs GENERAL: Awake, alert, and fully oriented, in no acute distress. EYES: Pupils equal, round and reactive to light, EOMI, no nyastagmus noted EARS, NOSE, THROAT: Moist mucous membranes. NECK: Normal range of motion, supple without lymphadenopathy, LUNGS: Breath sounds equal, clear to auscultation bilaterally. No wheezes, and no crackles. HEART: Regular rate and rhythm, normal S1 and S2 without murmur, rub or gallop. ABDOMEN: Soft, nontender, not distended, normoactive bowel sounds, no guarding, no rebound EXTREMITIES: 2+ pulses, warm, well-perfused. No peripheral edema. NEUROLOGICAL: CN 2-12 grossly intact , no facial asymmetry noted PSYCHIATRIC: Cooperative. Good eye contact. Appropriate mood and affect. SKIN: Warm, dry, normal CBCD WBC 5.9 K/mm3 (4.0-10.0) 08/20/19 06:15 RBC 5.46 M/mm3 (4.00-5.60) 08/20/19 06:15 Hgb 13.7 GM/dL (11.7-16.9) 08/20/19 06:15 Hct 43.2 % (35.4-49) 08/20/19 06:15 MCV 79.1 fl (80-96) L 08/20/19 06:15 MCHC 31.8 g/dl (32.0-35.9) L 08/20/19 06:15 RDW 15.2 % (11.9-15.9) 08/20/19 06:15 Plt Count 173 K/MM3 (134-434) 08/20/19 06:15 MPV 8.0 fl (7.5-11.1) 08/20/19 06:15 CMP Sodium 145 mmol/L (136-145) 08/20/19 05:15 Potassium 4.2 mmol/L (3.5-5.1) 08/20/19 05:15 Chloride 107 mmol/L (98-107) 08/20/19 05:15 Carbon Dioxide 27 mmol/L (21-32) 08/20/19 05:15 Anion Gap 10 MMOL/L (8-16) 08/20/19 05:15 BUN 10.2 mg/dL (7-18) 08/20/19 05:15 Creatinine 1.0 mg/dL (0.55-1.3) 08/20/19 05:15 Random Glucose 98 mg/dL (74-106) 08/20/19 05:15 Calcium 8.5 mg/dL (8.5-10.1) 08/20/19 05:15 Total Bilirubin 0.5 mg/dL (0.2-1) 08/20/19 05:15 AST 21 U/L (15-37) 08/20/19 05:15 ALT 29 U/L (13-61) 08/20/19 05:15 Alkaline Phosphatase 30 U/L (45-117) L 08/20/19 05:15 Total Protein 6.0 g/dl (6.4-8.2) L 08/20/19 05:15 Albumin 3.2 g/dl (3.4-5.0) L 08/20/19 05:15 CARDIAC ENZYMES Creatine Kinase 142 U/L (26-308) 08/20/19 00:00 Troponin I < 0.02 ng/ml (0.00-0.05) 08/20/19 00:00 Laboratory Tests 08/20/19 08/20/19 08/20/19 00:00 00:00 00:00 Triglycerides 192 H Cholesterol 158 Total LDL Cholesterol 136 H HDL Cholesterol 47 Home Medications Medication Instructions Recorded Aspirin [Ecotrin] 81 mg PO DAILY #30 tablet. 08/21/19 Atorvastatin Ca [Lipitor] 40 mg PO HS #30 tablet 08/21/19 Levothyroxine [Synthroid -] 25 mcg PO DAILY 08/21/19 Lisinopril [Prinivil] 10 mg PO DAILY #30 tablet 08/21/19 Assessment and plan; Patient is a 59yo male with pmhx of htn and thyroid disease presented w/ slurred speech, difficulty speaking, ataxia and altered mental status of a few hours. # Dysarthria+Ataxia; back to his normal status, CT head: Lacunar infarcts left basal ganglia of uncertain chronicity.will discharge him on aspirin and lipitor MRI of the brain: no evidence of acute infarction, extensive ischemic changes white matter of both cerebral hemispheres sequelae most probably due to HTN or small vessel atherosclerosis. Also old the small left cerebellar infarct. 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
== END 2019-08-21 15:18 | disposition home or self-care (01) | DRG 92 ==
LOC: JER 23:23 → JERBED 08-20 02:25 → J4W 08-20 03:32
PROVIDERS: ADMIT Internal Medicine; ATTEND Internal Medicine
DX: R47.1 Dysarthria and anarthria (principal); E87.0 Hyperosmolality and hypernatremia; R47.81 Slurred speech; R27.0 Ataxia, unspecified; I10 Essential (primary) hypertension; E87.6 Hypokalemia; E78.1 Pure hyperglyceridemia
CPT/HCPCS: 36415; 70450-TC; 70551-TC; 80053; 81003; 82465; 82550; 83718; 83721; 84478; 84484; 85025; 85610; 85730; 86850; 86900; 86901; 93005; 93010; 93880-TC; 97116-GP; 97161-GP; 99283-25; J7030

== ENCOUNTER 2021-03-26 13:29 | Observation (INO) | payer OTHER ==
[2021-03-26 15:12] LABS: BASO % 0.6 % (0-2.0); LYMPH % 16.2 % (8-40); MCH 23.9 pg (25.7-33.7); MCHC 31.9 g/dl (32.0-35.9); MEAN CELL VOLUME 74.8 fl (80-96); MEAN PLT VOLUME 8.3 fl (7.5-11.1); MONO % 9.3 % (3.8-10.2); NEUT % 71.9 % (42.8-82.8); PLATELET COUNT 183 K/MM3 (134-434); RBC 5.88 M/mm3 (4.00-5.60); RDW 14.9 % (11.9-15.9); URINE APPEARANCE CLEAR; URINE BILIRUBIN NEGATIVE (NEGATIVE); URINE COLOR YELLOW; URINE GLUCOSE (UA) NEGATIVE (NEGATIVE); URINE KETONE NEGATIVE (NEGATIVE); URINE LEUK ESTERASE NEGATIVE (NEGATIVE); URINE NITRITE NEGATIVE (NEGATIVE); URINE PROTEIN NEGATIVE (NEGATIVE); URINE UROBILINOGEN 0.2 mg/dL (0.2-1.0); WHITE BLOOD COUNT 8.1 K/mm3 (4.0-10.0)
[2021-03-26 15:34] LABS: CHLORIDE 98 mmol/L (98-107); SODIUM 134 mmol/L (136-145)
[2021-03-26 15:36] LABS: ALBUMIN 4.1 g/dl (3.4-5.0); CALCIUM 9.7 mg/dL (8.5-10.1)
[2021-03-26 15:37] LABS: ANION GAP 6 MMOL/L (8-16); BLOOD UREA NITROGEN 14.6 mg/dL (7-18); CO2 31 mmol/L (21-32); GLUCOSE,RANDOM 127 mg/dL (74-106)
[2021-03-26 15:40] LABS: CREATININE 1.2 mg/dL (0.55-1.3); SGOT/AST 62 U/L (15-37); SGPT/ALT 47 U/L (13-61)
[2021-03-26 15:41] LABS: BILIRUBIN,TOTAL 0.7 mg/dL (0.2-1)
[2021-03-26 15:43] LABS: ALK PHOS 37 U/L (45-117)
[2021-03-26 20:50] LABS: LDH 455 U/L (87-246)
[2021-03-26] MEDS ORDERED: ACETAMINOPHEN 325 MG TABLET (FP) PO PRN (20:53)
[2021-03-26] MEDS ORDERED: SODIUM CHLORIDE 1,000 ML IV SCH (21:00)
[2021-03-26] MEDS ORDERED: LIDOCAINE 5% TOPICAL PATCH ONE (21:16)
[2021-03-26] MEDS: LIDOCAINE 5% TOPICAL PATCH TP SCH (21:22)
[2021-03-26] MEDS ORDERED: LIDOCAINE PATCH REMOVAL MC SCH (22:00)
[2021-03-26 23:16] LABS: BLOOD UREA NITROGEN 14.6 mg/dL (7-18); CALCIUM 9.9 mg/dL (8.5-10.1)
[2021-03-26 23:19] LABS: CREATININE 1.1 mg/dL (0.55-1.3)
[2021-03-27 03:35] VITALS: BMI 24.5
[2021-03-27] MEDS ORDERED: LEVOTHYROXINE NA 25 MCG TABLET (FP) PO SCH (07:00)
[2021-03-27 07:36] LABS: BASO % 0.3 % (0-2.0); HEMATOCRIT 41.5 % (35.4-49); HEMOGLOBIN 13.5 GM/dL (11.7-16.9); LYMPH % 37.8 % (8-40); MCH 24.5 pg (25.7-33.7); MCHC 32.6 g/dl (32.0-35.9); MEAN CELL VOLUME 75.1 fl (80-96); MEAN PLT VOLUME 8.4 fl (7.5-11.1); MONO % 11.5 % (3.8-10.2); NEUT % 37.4 % (42.8-82.8); PLATELET COUNT 160 K/MM3 (134-434); RBC 5.53 M/mm3 (4.00-5.60); WHITE BLOOD COUNT 5.9 K/mm3 (4.0-10.0)
[2021-03-27 08:06] LABS: CHOLESTEROL 250 mg/dL (50-200); TRIGLYCERIDES 281 mg/dL (0-150)
[2021-03-27 08:07] LABS: LDL CHOLESTEROL (ONLY SJRH) 133 mg/dL (5-100)
[2021-03-27 08:08] LABS: ALBUMIN 3.6 g/dl (3.4-5.0); CALCIUM 9.3 mg/dL (8.5-10.1)
[2021-03-27 08:09] LABS: BLOOD UREA NITROGEN 14.3 mg/dL (7-18); HDL CHOLESTEROL 52 mg/dL (40-60); MAGNESIUM 2.1 mg/dL (1.8-2.4)
[2021-03-27 08:12] LABS: BILIRUBIN,TOTAL 1.1 mg/dL (0.2-1); PHOSPHOROUS 3.3 mg/dL (2.5-4.9); TOT PROT 6.8 g/dl (6.4-8.2)
[2021-03-27] MEDS: LIDOCAINE 5% TOPICAL PATCH TP SCH (09:48)
[2021-03-27] MEDS ORDERED: LISINOPRIL 20 MG TABLET PO SCH (10:00)
[2021-03-27] MEDS ORDERED: ASPIRIN COATED 81 MG TABLET.EC PO SCH (10:00)
[2021-03-27] MEDS ORDERED: ENOXAPARIN NA (PORCINE) 40 MG/0.4 ML DISP.SYRIN SQ SCH (10:00)
[2021-03-27 12:59] LABS: CHLORIDE 102 mmol/L (98-107); SODIUM 139 mmol/L (136-145)
[2021-03-27 13:01] LABS: ANION GAP 5 MMOL/L (8-16); BLOOD UREA NITROGEN 12.3 mg/dL (7-18); CALCIUM 9.6 mg/dL (8.5-10.1); CO2 32 mmol/L (21-32); GLUCOSE,RANDOM 92 mg/dL (74-106); MAGNESIUM 2.2 mg/dL (1.8-2.4)
[2021-03-27 13:04] LABS: CREATININE 1.1 mg/dL (0.55-1.3)
[2021-03-27 15:33] VITALS: BP 112/71; PULSE 73; TEMP 98.4
== END 2021-03-27 18:43 | disposition home or self-care (01) ==
LOC: JER 13:29 → JERBED 19:42 → INTOOBSV 19:42 → J4W 21:54
PROVIDERS: ADMIT Hospitalist; ATTEND Family Medicine
DX: R55 Syncope and collapse (principal); R42 Dizziness and giddiness; I10 Essential (primary) hypertension; E03.9 Hypothyroidism, unspecified; S22.31XA Fracture of one rib, right side, initial encounter for closed fracture; Z86.73 Personal history of transient ischemic attack (TIA), and cerebral infarction without residual deficits; Z79.82 Long term (current) use of aspirin; Z98.41 Cataract extraction status, right eye; W19.XXXA Unspecified fall, initial encounter; Y93.89 Activity, other specified; Y92.031 Bathroom in apartment as the place of occurrence of the external cause
CPT/HCPCS: 36415; 70450-TC; 71101-TC-RT-FY; 72125-TC; 80048; 80053; 80061; 81003; 82550; 82553; 83036; 83615; 83721; 83735; 83874; 84100; 84443; 84484; 85025; 87086; 93005; 93010; 93306-TC; 93880-TC; 97116-GP; 97162-GP; 99285-25; C9803; G0378; U0003; U0005